=== PATIENT | male | born 1985 | race Caucasian/White ===

== ENCOUNTER 2016-10-14 13:11 | Emergency (ER) | payer OTHER ==
[2016-10-14 13:14] VITALS: BMI 24.0
[2016-10-14 13:19] VITALS: BP 136/83; PULSE 74; RESP 18; TEMP 97.9; O2SAT 98
--- NOTE | 2016-10-14 13:34 | C.PDOC ---
History Of Present Illness 31 y/o male presents to ED with complaints of left arm pain for 2 days. Patient states he tripped and fell hurting his left arm and states pain is worse with movement. Motrin has been taken for pain and denies loc, numbness, tingling, fever, sensation changes or any other complaints at this time. Time Seen by Provider: 10/14/16 13:20 Chief Complaint (Nursing): Upper Extremity Problem/Injury History Per: Patient History/Exam Limitations: no limitations Onset/Duration Of Symptoms: Days Current Symptoms Are (Timing): Still Present Quality: Tightness Past Medical History Reviewed: Historical Data, Nursing Documentation, Vital Signs Vital Signs: Last Vital Signs Temp 97.9 F 10/14/16 13:14 Pulse 74 10/14/16 13:14 Resp 18 10/14/16 13:14 BP 136/83 10/14/16 13:14 Pulse Ox 98 10/14/16 14:06 - Medical History PMH: Pneumothorax (left) Family History: States: No Known Family Hx - Social History Hx Alcohol Use: No Hx Substance Use: No - Immunization History Hx Influenza Vaccination: Yes Review Of Systems Constitutional: Negative for: Fever, Chills Musculoskeletal: Positive for: Arm Pain Skin: Negative for: Rash Neurological: Negative for: Weakness, Numbness Physical Exam - Physical Exam Appears: Non-toxic, No Acute Distress Skin: Normal Color, Warm, No Rash Head: Atraumatic, Normacephalic Oral Mucosa: Moist Extremity: Tenderness (to left elbow focal at medial aspect), Capillary Refill ( <2 seconds), No Deformity, Swelling (To left elbow), Other (Pain to left elbow with extension) Pulses: Left Radial: Normal, Right Radial: Normal Neurological/Psych: Oriented x3, Normal Motor, Normal Sensation ED Course And Treatment O2 Sat by Pulse Oximetry: 98 (RA) Pulse Ox Interpretation: Normal - Other Rad Left arm X-Ray: Interpreted by Me, Viewed By Me, Read By Radiologist Interpretation: IMPRESSION: Suspected nondisplaced intra-articular fracture of left radial head with hemarthrosis. Medical Decision Making Medical Decision Making: Impression: left elbow injury and effusion suspicious for fracture Plan: * Left elbow Xray Progress, Reassess and Dispo: Left elbow xray reviewed showing joint effusion and lucency to radial head, Dr Dsouza agrees. Posterior arm splint applied by CP and checked by me. Arm sling applied. Patient given follow up instruction with orthopedic in timely manner. Patient verbalized understanding. Disposition Counseled Patient/Family Regarding: Diagnosis, Need For Followup, Rx Given - Disposition Referrals: Lm Mcmahon III, MD [Staff Provider] - Disposition: HOME/ ROUTINE Disposition Time: 13:58 Condition: STABLE Additional Instructions: Your xray shows a fracture. It is very important you follow up with orthopedic within 1-4 days. A splint has been applied which is a temporary cast. Do not wet splint, keep out of bath, and consider plastic bag. Take pain medication as needed. Seek medical attention if develop any numbness or pins and needle sensation. Prescriptions: Ibuprofen [Motrin] 600 mg PO Q8 #30 tab Instructions: Elbow Fracture in Adults (ED) Forms: [facility] (Citizen [place]) - POA Present On Arrival: None - Clinical Impression Clinical Impression: Radial head fracture - Scribe Statement The provider has reviewed the documentation as recorded by the Haydeeibrashida Bradford All medical record entries made by the Haydeeibrashida were at my direction and personally dictated by me. I have reviewed the chart and agree that the record accurately reflects my personal performance of the history, physical exam, medical decision making, and the department course for this patient. I have also personally directed, reviewed, and agree with the discharge instructions and disposition.
--- NOTE | 2016-10-14 13:57 | RAD ---
PROCEDURE: Radiographs of the left elbow. HISTORY: pain and swelling s.p fall COMPARISON: No prior. FINDINGS: BONES: Suspected nondisplaced intra-articular fracture of left radial head. No other fracture identified. JOINTS: Normal. No osteoarthritis. SOFT TISSUES: Normal. JOINT EFFUSION: There is a joint effusion/ hemarthrosis identified with elevation of the anterior fat pad OTHER FINDINGS: None IMPRESSION: Suspected nondisplaced intra-articular fracture of left radial head with hemarthrosis.
== END 2016-10-14 14:02 | disposition home or self-care (01) ==
LOC: C.ER 13:11
DX: S52.122A Displaced fracture of head of left radius, initial encounter for closed fracture (principal); W01.0XXA Fall on same level from slipping, tripping and stumbling without subsequent striking against object, initial encounter; Y93.9 Activity, unspecified; Y92.9 Unspecified place or not applicable